=== PATIENT | male | born 1965 | race American Indian/Alaskan Native ===

== ENCOUNTER 2018-08-21 12:01 | Emergency (ER) | payer MEDICARE ==
[2018-08-21] MEDS ORDERED: VICKS SINEX NS ONE (12:14)
--- NOTE | 2018-08-21 12:14 | Event Note ---
ED Screening Note ED Screening Note: daily asa pmh htn esrd hd cad/cabg here w nose bleed 172/85 hx thrombocytopenia This initial assessment/diagnostic orders/clinical plan/treatment(s) is/are subject to change based on patients health status, clinical progression and re- assessment by fellow clinical providers in the ED. Further treatment and workup at subsequent clinical providers discretion. Patient/guardian urged not to elope from the ED as their condition may be serious if not clinically assessed and managed. Initial orders include: labs afrin ordered ? packing
[2018-08-21 13:26] LABS: Hematocrit 32.1 % (35.5-45.6); Hemoglobin 10.8 gm/dl (11.8-15.2); Mean Corpuscular HGB Conc 34 % (32-34); Mean Corpuscular Volume 97 fl (84-94); Red Blood Count 3.32 M/mm3 (3.65-5.03); Red Cell Distribution Width 15.5 % (13.2-15.2)
[2018-08-21 13:28] LABS: Platelet Count 60 K/mm3 (140-440)
[2018-08-21 13:41] LABS: INR 1.2 (0.87-1.13)
[2018-08-21 13:45] LABS: Calcium 8.7 mg/dL (8.4-10.2)
--- NOTE | 2018-08-21 15:43 | Emergency Department Report ---
ED ENT HPI - General Chief complaint: Nosebleed Stated complaint: NOSE BLEED Time Seen by Provider: 08/21/18 12:12 Source: patient Mode of arrival: Ambulatory Limitations: No Limitations - History of Present Illness Initial comments: The patient presents to the emergency department with a chief complaint of a nosebleed. Patient states the nosebleed started at 7:30 AM this morning. Patient states he's had nosebleeds in the past that resolved without issue. Patient states she's also had a Rhino Rocket placed due to nosebleeds. The patient takes a baby aspirin daily but is not on any other antiplatelet or anticoagulation medications. The patient is on hemodialysis and denies chest pain, shortness breath, headache, abdominal pain, or trauma. -: Sudden Severity scale (0 -10): 0 Consistency: constant Improves with: none Worsens with: none Context-Epistaxis: aspirin use - Related Data Allergies Allergy/AdvReac Type Severity Reaction Status Date / Time No Known Allergies Allergy Verified 08/21/18 12:14 ED Dental HPI - General Chief complaint: Nosebleed Stated complaint: NOSE BLEED Time Seen by Provider: 08/21/18 12:12 Source: patient Mode of arrival: Ambulatory Limitations: No Limitations - Related Data Allergies Allergy/AdvReac Type Severity Reaction Status Date / Time No Known Allergies Allergy Verified 08/21/18 12:14 ED Review of Systems ROS: Stated complaint: NOSE BLEED Other details as noted in HPI Comment: All other systems reviewed and negative Constitutional: denies: chills, fever Eyes: denies: eye pain, eye discharge, vision change ENT: denies: ear pain, throat pain Respiratory: denies: cough, shortness of breath, wheezing Cardiovascular: denies: chest pain, palpitations Endocrine: no symptoms reported Gastrointestinal: denies: abdominal pain, nausea, diarrhea Genitourinary: denies: urgency, dysuria Musculoskeletal: denies: back pain, joint swelling, arthralgia Skin: denies: rash, lesions Neurological: denies: headache, weakness, paresthesias Psychiatric: denies: anxiety, depression Hematological/Lymphatic: denies: easy bleeding, easy bruising ED Past Medical Hx - Past Medical History Previous Medical History?: Yes Hx Hypertension: Yes Hx Renal Disease: Yes ([id number]) - Surgical History Past Surgical History?: Yes Hx Open Heart Surgery: Yes (CABGx2) - Social History Smoking Status: Never Smoker Substance Use Type: Alcohol, Marijuana ED Physical Exam - General Limitations: No Limitations General appearance: alert, in no apparent distress - Head Head exam: Present: atraumatic, normocephalic - Eye Eye exam: Present: normal appearance, PERRL, EOMI - ENT ENT exam: Present: other (otoscope exam of the right nasal nare shows anterior nosebleed with active bleeding lotting) - Neck Neck exam: Present: normal inspection - Respiratory Respiratory exam: Present: normal lung sounds bilaterally. Absent: respiratory distress - Cardiovascular Cardiovascular Exam: Present: regular rate, normal rhythm. Absent: systolic murmur, diastolic murmur, rubs, gallop - GI/Abdominal GI/Abdominal exam: Present: soft, normal bowel sounds - Rectal Rectal exam: Present: deferred - Extremities Exam Extremities exam: Present: normal inspection - Back Exam Back exam: Present: normal inspection - Neurological Exam Neurological exam: Present: alert, oriented X3 - Psychiatric Psychiatric exam: Present: normal affect, normal mood - Skin Skin exam: Present: warm, dry, intact, normal color. Absent: rash ED Course Vital Signs 08/21/18 12:12 Temperature 97.9 F Pulse Rate 79 Respiratory 20 Rate Blood Pressure 172/85 [Right] O2 Sat by Pulse 99 Oximetry ED Medical Decision Making - Lab Data Result diagrams: 08/21/18 12:26 08/21/18 12:26 - Medical Decision Making At the Afrin and packing of the right nostril bleeding subsided Nasal exam with otoscope shows anterior nosebleed with clotting Patient states his platelets have been 60,000 previously and today's value is pretty much where his norm is Afrin saturated 2 x 2 was placed in the right near for discharge and patient was instructed to remove it in 6 hours Critical care attestation.: If time is entered above; I have spent that time in minutes in the direct care of this critically ill patient, excluding procedure time. ED Disposition Clinical Impression: Epistaxis Disposition: DC-01 TO HOME OR SELFCARE Is pt being admited?: No Does the pt Need Aspirin: No Condition: Stable Instructions: Epistaxis (ED) Additional Instructions: return if worse Referrals: ERICKA MCMULLEN MD [Primary Care Provider] - 3-5 Days [facility] [Provider Group] - 3-5 Days [facility] [Provider Group] - 3-5 Days [facility] [Provider Group] - 3-5 Days [facility] [Outside] - 3-5 Days ADELINE LAND MD [Staff Physician] - 3-5 Days Time of Disposition: 15:40
[2018-08-21 15:50] VITALS: BP 170/81
== END 2018-08-21 15:49 | disposition home or self-care (01) ==
LOC: ED 12:01
DX: R04.0 Epistaxis (principal); I12.0 Hypertensive chronic kidney disease with stage 5 chronic kidney disease or end stage renal disease; N18.6 End stage renal disease; F12.90 Cannabis use, unspecified, uncomplicated; Z99.2 Dependence on renal dialysis; Z95.1 Presence of aortocoronary bypass graft
CPT/HCPCS: 36415; 80048; 85027; 85610; 85730; 86850; 86900; 86901; 99283